=== PATIENT | female | born 1960 | race Caucasian/White ===

== ENCOUNTER → 2018-05-18 10:35 | Outpatient (REF) | payer OTHER, SELFPAY ==
[2018-05-18 13:05] LABS: Bilirubin Negative (Negative); Blood Negative (Negative); Clarity Clear; Glucose Negative (Negative); Ketones Negative (Negative); Leukocyte Esterase Trace (Negative); Nitrite Negative (Negative); Specific Gravity 1.015 (1.005-1.025); Urobilinogen 0.2 EU/dL (Up TO 0.2); pH 5.5 (5-8)
[2018-05-18 13:59] LABS: Epithelial Cells Negative HPF (Negative); RBC Negative (0-2)
[2018-05-18 14:00] LABS: Bacteria Rare HPF (Negative); C & S Indicated? No; Casts Negative LPF (Negative); Crystals Negative HPF (Negative); Mucus Negative (Negative); Other Cells Negative (Negative)
== END ==
LOC: LBN 10:35
DX: R30.0 Dysuria (principal)
CPT/HCPCS: 81003; 81015

== ENCOUNTER 2018-08-18 13:36 | Emergency (ER) | payer OTHER, SELFPAY ==
[2018-08-18 13:43] VITALS: BP 150/95; PULSE 79; RESP 16; TEMP 37; O2SAT 97
--- NOTE | 2018-08-18 14:07 | W.ED.GENAD ---
Discharge Plan Disposition Patient Disposition: HOME Condition: Good Discharge Details Chief Complaint: RashLesion Clinical Impression: Dry skin dermatitis Primary Care Provider: Amie Patterson ED Provider: Mahnaz Hidalgo Home Meds and New Rx's Prescriptions: New clotrimazole-betamethasone 1-0.05 % cream 1 applic TP BID 14 Days Qty: 15 RF: 0 methylprednisolone [Medrol (Cody)] 4 mg tablets,dose pack 4 mg PO .qd Qty: 21 RF: 0 Continue albuterol sulfate [ProAir HFA] 8.5 GM HFA aerosol inhaler 2 puff Inhalation Q4H PRN Qty: 1 RF: 6 fluticasone [Flonase Allergy Relief] 9.9 ML spray,suspension 9.9 ml NS DAILY PRN30 Days Qty: 3 RF: 1 fluticasone-salmeterol [Advair HFA] 8 GM HFA aerosol inhaler 2 puff Inhalation BID Qty: 3 RF: 1 levothyroxine [Synthroid] 125 MCG tablet 1 tab PO DIRECTED Qty: 60 RF: 4 levothyroxine [Synthroid] 112 MCG tablet 1 tab PO DIRECTED Qty: 40 RF: 4 esomeprazole magnesium 20 mg capsule,delayed release(DR/EC) 20 mg PO DAILY 90 Days Qty: 90 RF: 1 [facility] 1 tab PO DAILY RF: 0 Discharge Instructions Instructions: Dermatitis (ED) Additional Instructions: Encourage hydration. Please Eucerin cream to your face or other pjxr-loq-onnwlah thick hydrating cream to help with dry skin. Please use the prescribed cream for your hands, do not apply this to your face. Use this twice daily for the next 2 weeks. If, in the next 5-7 days her symptoms have not began to improve please take Medrol Dosepak as prescribed. Please follow-up in the next 1-2 weeks your primary care for reevaluation please do not improve. Please monitor for signs of infection putting redness, pain, discharge, fevers or chills. If these arise please seek care urgently once again Referrals: Amie Patterson, MARINE SPECIALIST [Primary Care Provider] - Discharge Data Discharge Date/Time-TO BE ENTERED AT DEPARTURE: 08/18/18 15:10 Medical Decision Making Patient a 58-year-old female presenting today with chief complaint of rash. She reports approximately weeks ago she began noting a rash primarily in all dorsum of the left side of the hand. States it was pruritic. Area does appear excoriated. The entirety of the dorsum aspect of the left hand has more focal areas of dryness. Lesions appear consistent with psoriasis although patient does not have history of this. She was questioning if this could be tinea, but exam is not completely consistent with this. No open wounds. Has focal areas of dryness on the dorsum of the right hand as well. Left side of the mouth is also noted to be slightly raised and appear very dry. No pain on palpation of these areas. No signs of infection. She reports she has been using multiple different topical ointments. However, patient reports she is now been using a 1 consistently. Rather, she reports that she has changing this frequently. Has tried vinegar, Mellaluca oil, various lotions and emollients. These findings, patient will be treated with clotrimazole betamethasone cream. Advised that she stop the vinegar and other types of home remedies she has been trying. I advised that she stick with the prescribed cream. Patient will be also prescribed Medrol Dosepak to begin if this is unsuccessful next 1-2 weeks. Advise follow-up with primary care in 1 week if symptoms have not resolved. We discussed new/worsening symptoms. In particular, I advised on the signs symptoms of infection and when to seek care urgently for this once again. All of her questions and concerns were addressed and she is in agreement this plan HPI General Mode of arrival: ambulatory. Date/Time Provider Initiated Documentation: 08/18/18 13:43. Limitations to Documentation: no limitations. Information obtained by: patient. History of Present Illness 58 year old F presents to the emergency department with the chief complaint of rash, described as mild, Quality is described as other (itching to dorsum of hand), and is localized to the face (left side of mouth), left, right and upper extremity (dorsum of hands). Patient reports no radiation. Patient started experiencing this week(s) (2) and it has been constant. No relieving factors improve symptom(s), Patient notes no other symptoms.; denies chest pain, cough, fever/chills, loss of appetite, nausea/vomiting, shortness of breath and weakness. Patient did receive the following treatments prior to arrival, other (multiple topical) Related Data Home Medications Medication Instructions Recorded Confirmed albuterol sulfate [ProAir HFA] 2 puff INHALATION Q4H PRN #1 06/29/17 08/18/18 inhaler fluticasone [Flonase Allergy 9.9 ml NS DAILY PRN 30 Days #3 07/03/17 08/18/18 Relief] fluticasone-salmeterol [Advair HFA] 2 puff INHALATION BID #3 inhaler 10/18/17 08/18/18 levothyroxine [Synthroid] 1 tab PO DIRECTED #40 tab 02/05/18 08/18/18 levothyroxine [Synthroid] 1 tab PO DIRECTED #60 tab 02/05/18 08/18/18 esomeprazole magnesium 20 mg PO DAILY 90 Days #90 cap 08/17/18 08/18/18 [facility] 1 tab PO DAILY 08/18/18 clotrimazole-betamethasone 1 applic TP BID 14 Days #15 gm 08/18/18 methylprednisolone [Medrol (Cody)] 4 mg PO .qd #21 dose pk 08/18/18 Previous Rx's Medication Instructions Recorded albuterol sulfate [ProAir HFA] 2 puff INHALATION Q4H PRN #1 06/29/17 inhaler fluticasone-salmeterol [Advair HFA] 2 puff INHALATION BID #3 inhaler 10/18/17 levothyroxine [Synthroid] 1 tab PO DIRECTED #40 tab 02/05/18 levothyroxine [Synthroid] 1 tab PO DIRECTED #60 tab 02/05/18 esomeprazole magnesium 20 mg PO DAILY 90 Days #90 cap 08/17/18 clotrimazole-betamethasone 1 applic TP BID 14 Days #15 gm 08/18/18 methylprednisolone [Medrol (Cody)] 4 mg PO .qd #21 dose pk 08/18/18 Allergies Allergy/AdvReac Type Severity Reaction Status Date / Time Sulfa (Sulfonamide Allergy Severe RASH Unverified 08/18/18 13:46 Antibiotics) erythromycin base AdvReac Unknown GI UPSET Unverified 08/18/18 13:46 General Stated Complaint: RashLesion DENICE: 4 Review of Systems Constitutional Reports as per HPI Cardiovascular Reports as per HPI Respiratory Reports as per HPI Musculoskeletal Reports as per HPI, Denies numbness and Denies tingling Integumentary/Breasts Reports as per HPI Neurologic Denies numbness, Denies tingling and Denies paresthesias PFSH Family History Mother Essential hypertension Personal history of malignant neoplasm Heart disease Father No problems noted. Sister No problems noted. Sister No problems noted. Sister No problems noted. Brother Personal history of malignant neoplasm Brother No problems noted. Brother Essential hypertension Brother Hyperlipidemia Brother No problems noted. Brother No problems noted. Brother Essential hypertension Grandfather No problems noted. Grandfather No problems noted. Grandmother No problems noted. Grandmother No problems noted. Medical History Asthma GERD (gastroesophageal reflux disease) Hypothyroidism Social History Smoking/Tobacco Use Status: Never Surgical History section (~1981) Colonoscopy - MAC (08/21/17) NASAL POLYP SURGERY Exam Const General: cooperative, healthy appearing, comfortable, no acute distress, well developed and well groomed Nutritional Appearance: average body habitus and well nourished Orientation: alert and awake HENMT Head: normal to inspection Ears: hearing grossly normal bilaterally General nose exam: external nose normal Face and sinus: abnormal facial exam (patient has a mild erythematous, dry rash to left side of mouth, drawn below. No open wounds, no discharge, no pain with palpation. ) Face images: 1. elevated dry rash Mouth: oral mucosae normal and lip normal Throat: posterior oropharynx normal Eyes General: appearance normal, both eyes and all related structures Resp Effort & Inspection: normal respiratory effort, able to speak in complete sentences and no respiratory distress Auscultation: clear to auscultation bilaterally, no rales, no rhonchi and no wheezes Cardio Rate: regular rate Rhythm: regular rhythm Heart Sounds: S1 normal and S2 normal Skin General skin exam: no crusts, no ecchymosis and no erythema Rashes: rashes noted (patient has focal areas of dry skin on the dorsum of bilateral hands, left worse than right. Area appears excoriated. Appears psoriatic) Neuro General: alert, awake and oriented x3 Cognition: normal cognition Speech: speech normal Gait: normal gait Extrem General: abnormal to inspection (rash to both hands as above), full ROM, normal capillary refill and no joint enlargement Psych Appearance: grossly normal and well kempt Mental Status: mental status grossly normal Speech and Movement: speech and movement normal Course Vital Signs Temperature 37 C 08/18/18 13:43 Pulse 79 08/18/18 13:43 Respiratory Rate 16 08/18/18 13:43 Blood Pressure 150/95 H 08/18/18 13:43 Pulse Oximetry 97 08/18/18 13:43 Temperature 37 C 08/18/18 13:43 Temperature Source Skin 08/18/18 13:43 Pulse 79 08/18/18 13:43 Respiratory Rate 16 08/18/18 13:43 Respiratory Effort Non-Labored 08/18/18 13:43 Blood Pressure 150/95 H 08/18/18 13:43 Blood Pressure Position Sitting 08/18/18 13:43 Pulse Oximetry 97 08/18/18 13:43 Oxygen Delivery Method Room Air 08/18/18 13:43 Oxygen Flow Rate 0 08/18/18 13:43 Pain Level 0 08/18/18 13:43
[2018-08-18 15:08] VITALS: BP 136/75; PULSE 67; RESP 16; O2SAT 97
--- NOTE | 2018-08-19 19:15 | ED.GENADUL_ITS ---
Discharge Plan Disposition Patient Disposition: HOME Condition: Good Discharge Details Chief Complaint: RashLesion Clinical Impression: Dry skin dermatitis Primary Care Provider: Amie Patterson ED Provider: Mahnaz Hidalgo Home Meds and New Rx's Prescriptions: New clotrimazole-betamethasone 1-0.05 % cream 1 applic TP BID 14 Days Qty: 15 RF: 0 methylprednisolone [Medrol (Cody)] 4 mg tablets,dose pack 4 mg PO .qd Qty: 21 RF: 0 Continue albuterol sulfate [ProAir HFA] 8.5 GM HFA aerosol inhaler 2 puff Inhalation Q4H PRN Qty: 1 RF: 6 fluticasone [Flonase Allergy Relief] 9.9 ML spray,suspension 9.9 ml NS DAILY PRN30 Days Qty: 3 RF: 1 fluticasone-salmeterol [Advair HFA] 8 GM HFA aerosol inhaler 2 puff Inhalation BID Qty: 3 RF: 1 levothyroxine [Synthroid] 125 MCG tablet 1 tab PO DIRECTED Qty: 60 RF: 4 levothyroxine [Synthroid] 112 MCG tablet 1 tab PO DIRECTED Qty: 40 RF: 4 esomeprazole magnesium 20 mg capsule,delayed release(DR/EC) 20 mg PO DAILY 90 Days Qty: 90 RF: 1 [facility] 1 tab PO DAILY RF: 0 Discharge Instructions Instructions: Dermatitis (ED) Additional Instructions: Encourage hydration. Please Eucerin cream to your face or other over-the- counter thick hydrating cream to help with dry skin. Please use the prescribed cream for your hands, do not apply this to your face. Use this twice daily for the next 2 weeks. If, in the next 5-7 days her symptoms have not began to improve please take Medrol Dosepak as prescribed. Please follow-up in the next 1-2 weeks your primary care for reevaluation please do not improve. Please monitor for signs of infection putting redness, pain, discharge, fevers or chills. If these arise please seek care urgently once again Referrals: Amie Patterson, TRIMMING OPERATOR [Primary Care Provider] - Discharge Data Discharge Date/Time-TO BE ENTERED AT DEPARTURE: 08/18/18 15:10 Medical Decision Making Patient a 58-year-old female presenting today with chief complaint of rash. She reports approximately weeks ago she began noting a rash primarily in all dorsum of the left side of the hand. States it was pruritic. Area does appear excoriated. The entirety of the dorsum aspect of the left hand has more focal areas of dryness. Lesions appear consistent with psoriasis although patient does not have history of this. She was questioning if this could be tinea, but exam is not completely consistent with this. No open wounds. Has focal areas of dryness on the dorsum of the right hand as well. Left side of the mouth is also noted to be slightly raised and appear very dry. No pain on palpation of these areas. No signs of infection. She reports she has been using multiple different topical ointments. However, patient reports she is now been using a 1 consistently. Rather, she reports that she has changing this frequently. Has tried vinegar, Mellaluca oil, various lotions and emollients. These findings, patient will be treated with clotrimazole betamethasone cream. Advised that she stop the vinegar and other types of home remedies she has been trying. I advised that she stick with the prescribed cream. Patient will be also prescribed Medrol Dosepak to begin if this is unsuccessful next 1-2 weeks. Advise follow-up with primary care in 1 week if symptoms have not resolved. We discussed new/worsening symptoms. In particular, I advised on the signs symptoms of infection and when to seek care urgently for this once again. All of her questions and concerns were addressed and she is in agreement this plan HPI General Mode of arrival: ambulatory . Date/Time Provider Initiated Documentation: 08/18/18 13:43 . Limitations to Documentation: no limitations . Information obtained by: patient . History of Present Illness 58 year old F presents to the emergency department with the chief complaint of rash, described as mild, Quality is described as other (itching to dorsum of hand), and is localized to the face (left side of mouth), left, right and upper extremity (dorsum of hands). Patient reports no radiation. Patient started experiencing this week(s) (2) and it has been constant. No relieving factors improve symptom(s), Patient notes no other symptoms.; denies chest pain, cough, fever/chills, loss of appetite, nausea/vomiting, shortness of breath and weakness. Patient did receive the following treatments prior to arrival, other (multiple topical) Related Data Home Medications Medication Instructions Recorded Confirmed albuterol sulfate [ProAir HFA] 2 puff INHALATION Q4H PRN #1 06/29/17 08/18/18 inhaler fluticasone [Flonase Allergy 9.9 ml NS DAILY PRN 30 Days #3 07/03/17 08/18/18 Relief] fluticasone-salmeterol [Advair HFA] 2 puff INHALATION BID #3 inhaler 10/18/17 levothyroxine [Synthroid] 1 tab PO DIRECTED #40 tab 02/05/18 08/18/18 levothyroxine [Synthroid] 1 tab PO DIRECTED #60 tab 02/05/18 08/18/18 esomeprazole magnesium 20 mg PO DAILY 90 Days #90 cap 08/17/18 08/18/18 [facility] 1 tab PO DAILY 08/18/18 clotrimazole-betamethasone 1 applic TP BID 14 Days #15 gm 08/18/18 methylprednisolone [Medrol (Cody)] 4 mg PO .qd #21 dose pk 08/18/18 Previous Rx's Medication Instructions Recorded albuterol sulfate [ProAir HFA] 2 puff INHALATION Q4H PRN #1 06/29/17 inhaler fluticasone-salmeterol [Advair HFA] 2 puff INHALATION BID #3 inhaler 10/18/17 levothyroxine [Synthroid] 1 tab PO DIRECTED #40 tab 02/05/18 levothyroxine [Synthroid] 1 tab PO DIRECTED #60 tab 02/05/18 esomeprazole magnesium 20 mg PO DAILY 90 Days #90 cap 08/17/18 clotrimazole-betamethasone 1 applic TP BID 14 Days #15 gm 08/18/18 methylprednisolone [Medrol (Cody)] 4 mg PO .qd #21 dose pk 08/18/18 Allergies Allergy/AdvReac Type Severity Reaction Status Date / Time Sulfa (Sulfonamide Allergy Severe RASH Unverified 08/18/18 13:46 Antibiotics) erythromycin base AdvReac Unknown GI UPSET Unverified 08/18/18 13:46 General Stated Complaint: RashLesion DENICE: 4 Review of Systems Constitutional Reports as per HPI Cardiovascular Reports as per HPI Respiratory Reports as per HPI Musculoskeletal Reports as per HPI, Denies numbness and Denies tingling Integumentary/Breasts Reports as per HPI Neurologic Denies numbness, Denies tingling and Denies paresthesias PFSH Family History Mother Essential hypertension Personal history of malignant neoplasm Heart disease Father No problems noted. Sister No problems noted. Sister No problems noted. Sister No problems noted. Brother Personal history of malignant neoplasm Brother No problems noted. Brother Essential hypertension Brother Hyperlipidemia Brother No problems noted. Brother No problems noted. Brother Essential hypertension Grandfather No problems noted. Grandfather No problems noted. Grandmother No problems noted. Grandmother No problems noted. Medical History Asthma GERD (gastroesophageal reflux disease) Hypothyroidism Social History Smoking/Tobacco Use Status: Never Surgical History section (~1981) Colonoscopy - MAC (08/21/17) NASAL POLYP SURGERY Exam Const General: cooperative, healthy appearing, comfortable, no acute distress, well developed and well groomed Nutritional Appearance: average body habitus and well nourished Orientation: alert and awake HENMT Head: normal to inspection Ears: hearing grossly normal bilaterally General nose exam: external nose normal Face and sinus: abnormal facial exam (patient has a mild erythematous, dry rash to left side of mouth, drawn below. No open wounds, no discharge, no pain with palpation. ) Face images: 2 1. elevated dry rash Mouth: oral mucosae normal and lip normal Throat: posterior oropharynx normal Eyes General: appearance normal, both eyes and all related structures Resp Effort & Inspection: normal respiratory effort, able to speak in complete sentences and no respiratory distress Auscultation: clear to auscultation bilaterally, no rales, no rhonchi and no wheezes Cardio Rate: regular rate Rhythm: regular rhythm Heart Sounds: S1 normal and S2 normal Skin General skin exam: no crusts, no ecchymosis and no erythema Rashes: rashes noted (patient has focal areas of dry skin on the dorsum of bilateral hands, left worse than right. Area appears excoriated. Appears psoriatic) Neuro General: alert, awake and oriented x3 Cognition: normal cognition Speech: speech normal Gait: normal gait Extrem General: abnormal to inspection (rash to both hands as above), full ROM, normal capillary refill and no joint enlargement Psych Appearance: grossly normal and well kempt Mental Status: mental status grossly normal Speech and Movement: speech and movement normal Course Vital Signs Temperature 37 C 08/18/18 13:43 Pulse 79 08/18/18 13:43 Respiratory Rate 16 08/18/18 13:43 Blood Pressure 150/95 H 08/18/18 13:43 Pulse Oximetry 97 08/18/18 13:43 Temperature 37 C 08/18/18 13:43 Temperature Source Skin 08/18/18 13:43 Pulse 79 08/18/18 13:43 Respiratory Rate 16 08/18/18 13:43 Respiratory Effort Non-Labored 08/18/18 13:43 Blood Pressure 150/95 H 08/18/18 13:43 Blood Pressure Position Sitting 08/18/18 13:43 Pulse Oximetry 97 08/18/18 13:43 Oxygen Delivery Method Room Air 08/18/18 13:43 Oxygen Flow Rate 0 08/18/18 13:43 Pain Level 0 08/18/18 13:43
== END 2018-08-18 15:10 | disposition home or self-care (01) ==
PROVIDERS: Emergency Provider Physician Assistant
DX: L85.3 Xerosis cutis (principal)
CPT/HCPCS: 99283

== ENCOUNTER 2018-11-22 02:30 | Outpatient (CLI) | payer OTHER, SELFPAY ==
--- NOTE | 2018-11-22 07:23 | DI.MAMMO_ITS ---
SYMPTOMS/DIAGNOSIS: SCREENING, Z12.31 MAMMOGRAMS: Mammograms were interpreted according to the usual protocol including computer analysis with CAD system, tomosynthesis and C view imaging. The breasts are of moderate density with fairly symmetrical distribution of fibroglandular tissue. No dominant mass or clumped microcalcification is identified in either breast. Current examination is compared with previous examinations including November 2017 and there has been no gross interval change in appearance in comparison with the previous studies. CONCLUSION: No specific evidence of malignancy at this time. Routine screening examinations are suggested at yearly intervals in this age group according to the ACS/ACR guidelines. Category 1, breast density category B. MQSA ASSESSMENT OF FINDINGS: Negative. Category 1. Patient will receive a letter notifying them of these results. BI-RADS category B. There are scattered areas of fibroglandular density.
[2018-11-22 09:06] LABS: ALT 57 U/L (12-78); AST 24 U/L (15-37); Alkaline Phosphatase 66 U/L (46-116); Anion Gap 10.3 mmol/L (3-11); BUN 20 mg/dL (7-18); Bilirubin, Total 0.6 mg/dL (0.2-1.0); CO2 29.7 mmol/L (21.0-32.0); CREATININE 0.85 mg/dL (0.55-1.02); Calcium 9.6 mg/dL (8.5-10.1); Chloride 105 mmol/L (98-107); Cholesterol 224 mg/dL (50-200); Glucose 107 mg/dL (70-100); HDL Cholesterol 64 mg/dL (40-60); LDL CHOLESTEROL 134 mg/dL (<100); Potassium 4.2 mmol/L (3.5-5.1); Sodium 145 mmol/L (136-145); TSH (W/Ref FT4) 5.76 uIU/mL (0.358-3.74); Total Protein 7.6 g/dL (6.4-8.2); Triglyceride 107 mg/dL (30-150)
[2018-11-22 09:25] LABS: FREE T4 1.03 ng/dL (0.76-1.46)
== END 2018-11-22 02:50 ==
DX: Z12.31 Encounter for screening mammogram for malignant neoplasm of breast (principal); E03.9 Hypothyroidism, unspecified; Z00.00 Encounter for general adult medical examination without abnormal findings; I10 Essential (primary) hypertension; J45.909 Unspecified asthma, uncomplicated; G47.00 Insomnia, unspecified; R63.8 Other symptoms and signs concerning food and fluid intake
CPT/HCPCS: 77063; 77067; 80053; 80061; 83721; 84439; 84443

== ENCOUNTER 2019-07-30 02:08 | Outpatient (CLI) | payer OTHER, SELFPAY ==
[2019-07-30 09:05] LABS: ALT 33 U/L (14-59); AST 17 U/L (15-37); Albumin 3.9 g/dL (3.4-5.0); Alkaline Phosphatase 63 U/L (46-116); Anion Gap 9.3 mmol/L (3-11); BUN 20 mg/dL (7-18); Bilirubin, Total 0.5 mg/dL (0.2-1.0); CO2 29.7 mmol/L (21.0-32.0); CREATININE 0.82 mg/dL (0.55-1.02); Calcium 9.2 mg/dL (8.5-10.1); Calculated LDL 137 mg/dL; Chloride 104 mmol/L (98-107); Cholesterol 222 mg/dL (50-200); Glucose 101 mg/dL (70-100); HDL Cholesterol 71 mg/dL (40-60); Potassium 4.4 mmol/L (3.5-5.1); Sodium 143 mmol/L (136-145); TSH (W/Ref FT4) 10.23 uIU/mL (0.36-3.74); Total Protein 7.2 g/dL (6.4-8.2); Triglyceride 74 mg/dL (30-150)
[2019-07-30 09:42] LABS: FREE T4 0.89 ng/dL (0.76-1.46)
== END 2019-07-30 02:28 ==
DX: E03.9 Hypothyroidism, unspecified (principal); J45.909 Unspecified asthma, uncomplicated; R63.8 Other symptoms and signs concerning food and fluid intake; Z00.00 Encounter for general adult medical examination without abnormal findings; I10 Essential (primary) hypertension; G47.00 Insomnia, unspecified
CPT/HCPCS: 36415; 80053; 80061; 84439; 84443

== ENCOUNTER 2019-10-21 15:30 | Outpatient (CLI) | payer OTHER, SELFPAY ==
[2019-10-21 18:58] LABS: ALT 42 U/L (14-59); AST 17 U/L (15-37); Albumin 4.3 g/dL (3.4-5.0); Alkaline Phosphatase 69 U/L (46-116); BUN 20 mg/dL (7-18); Bilirubin, Total 0.4 mg/dL (0.2-1.0); CREATININE 0.85 mg/dL (0.55-1.02); Calcium 9.2 mg/dL (8.5-10.1); Calculated LDL 157 mg/dL; Chloride 105 mmol/L (98-107); Cholesterol 253 mg/dL (<200); Glucose 96 mg/dL (74-106); HDL Cholesterol 74 mg/dL (40-60); Sodium 145 mmol/L (136-145); TSH (W/Ref FT4) 10.13 uIU/mL (0.36-3.74); Total Protein 7.7 g/dL (6.4-8.2); Triglyceride 114 mg/dL (<150)
[2019-10-22 14:58] LABS: FREE T4 0.96 ng/dL (0.76-1.46)
== END 2019-10-21 15:50 ==
DX: Z00.00 Encounter for general adult medical examination without abnormal findings (principal); E03.9 Hypothyroidism, unspecified; E78.5 Hyperlipidemia, unspecified; G47.00 Insomnia, unspecified; K21.9 Gastro-esophageal reflux disease without esophagitis; J45.909 Unspecified asthma, uncomplicated
CPT/HCPCS: 36415; 80053; 80061; 84439; 84443

== ENCOUNTER 2019-10-21 15:35 | Outpatient (REF) | payer OTHER, SELFPAY ==
--- NOTE | 2019-10-21 13:30 | PAPFT_PTH ---
PATIENT: Simona Pineda LOC: [facility]#:[id number] AGE/SX: 59/F ROOM: RE10/21/[address]: Amie Patterson APRN : 1960 BED: DIS: 10/21/2019 SPEC #: [id number] RECD: 10/21/19 18:45 STATUS: EDILBERTO RELsia #: [id number] TAVIA: 10/21/19 13:[address]: Amie Patterson [facility] Cytology RECD BY: Deborah Maloney Tissues: 1 - CX/ENDOCX FOR PAP SMEARS Procedures: PAP THIN PREP/UVM Screening HPV DNA PROBE Comments: [id number]
== END 2019-10-21 15:55 ==
LOC: NCHCN 15:35
DX: Z12.4 Encounter for screening for malignant neoplasm of cervix (principal)
CPT/HCPCS: 88142; 87624

== ENCOUNTER 2019-11-25 01:23 | Outpatient (CLI) | payer OTHER, SELFPAY ==
--- NOTE | 2019-11-25 14:57 | DI.MAMMO_ITS ---
EXAM: MAMMO SCREENING CLINICAL HISTORY: screening Z12.39. TECHNIQUE: Full field digital CC and MLO mammographic images were obtained with 3D tomosynthesis and utilizing computer aided detection (CAD). COMPARISON: . 2009 through 2013 FINDINGS: Breast Density - Category B - Scattered areas of fibroglandular density Masses/Architectural Distortion: None seen. Microcalcifications: No suspicious pleomorphic-type calcifications are seen. Skin Thickening/Nipple Retraction: None. Axilla: Unremarkable. IMPRESSION: 1. BI-RADS category 1, negative. No significant interval change with no specific features of maligna ncy noted. 2. Unless there is more urgent need, screening mammography is recommended, as per [place] [employer] guidelines. A negative radiographic report should not delay biopsy if a dominant or clinically suspicious mass is present. Up to ten percent of cancers are not identified on mammography. A negative report may reinforce clinical impression. Adenosis and dense breasts may obscure an underlying neoplasm. False positive reports average 6 to 10%. Patient will receive a letter notifying them of these results.
== END 2019-11-25 01:43 ==
DX: Z12.31 Encounter for screening mammogram for malignant neoplasm of breast (principal)
CPT/HCPCS: 77063; 77067

== ENCOUNTER 2019-12-19 14:08 | Outpatient (CLI) | payer OTHER, SELFPAY ==
[2019-12-19 15:32] LABS: TSH (W/Ref FT4) 1.83 uIU/mL (0.36-3.74)
== END 2019-12-19 14:28 ==
DX: E03.9 Hypothyroidism, unspecified (principal); G47.00 Insomnia, unspecified
CPT/HCPCS: 36415; 84443

== ENCOUNTER 2020-04-21 02:18 | Outpatient (CLI) | payer OTHER, SELFPAY ==
[2020-04-21 10:33] LABS: TSH (W/Ref FT4) 1.43 uIU/mL (0.36-3.74)
== END 2020-04-21 02:38 ==
DX: E03.9 Hypothyroidism, unspecified (principal); G47.00 Insomnia, unspecified
CPT/HCPCS: 36415; 84443

== ENCOUNTER 2020-04-28 01:40 | Outpatient (CLI) | payer OTHER, SELFPAY ==
--- NOTE | 2020-04-28 06:45 | DI.RAD_ITS ---
EXAM: XR FOOT LT COMPLETE CLINICAL HISTORY: left foot pain and swelling without injury,m79.672 TECHNIQUE: COMPARISON: No exams were available for comparison FINDINGS: Three views were obtained. There is a moderate hallux valgus deformity. There is [id number] d egenerative change of the 1st MTP joint, there is mild to moderate degenerative change of the IP join ts of the foot and also of the joints of the midfoot, particularly at the cuneiform 1st through 3rd m etatarsal joints. No other significant bony or soft tissue abnormality seen. 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
== END 2020-04-28 02:00 ==
DX: M79.672 Pain in left foot (principal); M19.072 Primary osteoarthritis, left ankle and foot; M20.12 Hallux valgus (acquired), left foot
CPT/HCPCS: 73630

== ENCOUNTER 2020-10-22 02:22 | Outpatient (CLI) | payer OTHER, SELFPAY ==
[2020-10-22 13:19] LABS: ALT 45 U/L (14-59); AST 20 U/L (15-37); Albumin 4.1 g/dL (3.4-5.0); Alkaline Phosphatase 59 U/L (46-116); Anion Gap 6.1 mmol/L (3-11); BUN 18 mg/dL (7-18); Bilirubin, Total 0.5 mg/dL (0.2-1.0); CO2 29.9 mmol/L (21.0-32.0); CREATININE 0.84 mg/dL (0.55-1.02); Calcium 8.9 mg/dL (8.5-10.1); Calculated LDL 157 mg/dL (<100); Chloride 104 mmol/L (98-107); Cholesterol 248 mg/dL (<200); Glucose 92 mg/dL (74-106); HDL Cholesterol 79 mg/dL (40-60); Potassium 4.3 mmol/L (3.5-5.1); Sodium 140 mmol/L (136-145); TSH (W/Ref FT4) 14.75 uIU/mL (0.36-3.74); Total Protein 7.4 g/dL (6.4-8.2); Triglyceride 60 mg/dL (<150)
[2020-10-22 13:47] LABS: FREE T4 0.91 ng/dL (0.76-1.46)
== END 2020-10-22 02:42 ==
DX: Z00.00 Encounter for general adult medical examination without abnormal findings (principal); E78.5 Hyperlipidemia, unspecified; E03.9 Hypothyroidism, unspecified; G47.00 Insomnia, unspecified; K21.9 Gastro-esophageal reflux disease without esophagitis; J45.909 Unspecified asthma, uncomplicated
CPT/HCPCS: 36415; 80053; 80061; 84439; 84443

== ENCOUNTER 2020-12-03 10:02 | Outpatient (REF) | payer OTHER, SELFPAY ==
--- NOTE | 2020-12-03 08:00 | PAPFT_PTH ---
PATIENT: Simona Pineda LOC: [facility] U#:[id number] AGE/SX: 60/F ROOM: RE12/03/[address]: Amie Patterson APRN : 1960 BED: DIS: 12/03/2020 SPEC #: [id number] RECD: 12/03/20 13:15 STATUS: EDILBERTO COVARRUBIAS #: [id number] TAVIA: 12/03/20 08:[address]: Amie Patterson [facility] Cytology RECD BY: Deborah Maloney Tissues: 1 - CX/ENDOCX FOR PAP SMEARS Procedures: PAP THIN PREP/UVM Screening HPV DNA PROBE Comments: [id number]
== END 2020-12-03 10:03 | disposition home or self-care (01) ==
LOC: LBN 10:02
DX: Z12.4 Encounter for screening for malignant neoplasm of cervix (principal); Z11.51 Encounter for screening for human papillomavirus (HPV)
CPT/HCPCS: 88142; 87624

== ENCOUNTER 2021-02-15 02:26 | Outpatient (CLI) | payer OTHER, SELFPAY ==
[2021-02-15 18:05] LABS: TSH (W/Ref FT4) 0.05 uIU/mL (0.36-3.74)
[2021-02-15 18:21] LABS: FREE T4 1.35 ng/dL (0.76-1.46)
== END 2021-02-15 02:27 | disposition home or self-care (01) ==
LOC: LBO 02:26
DX: E03.9 Hypothyroidism, unspecified (principal)
CPT/HCPCS: 36415; 84439; 84443

== ENCOUNTER 2021-09-06 01:14 | Outpatient (CLI) | payer OTHER, SELFPAY ==
--- NOTE | 2021-09-06 15:37 | DI.MAMMO_ITS ---
Exam(s) MAMMO SCREENING EXAM: MAMMO SCREENING CLINICAL HISTORY: screening TECHNIQUE: Mammograms were interpreted according to the usual protocol including computer analysis w [employer] CAD system, tomosynthesis and C-view imaging. COMPARISON: 2010 through 2019 FINDINGS: The breasts are composed of scattered fibroglandular densities, Breast Density category B. No suspicious masses or suspicious microcalcifications are seen. No skin thickening or abnormal axillary lymph nodes are seen. There has been no significant change from prior exams. IMPRESSION: BI-RADS Category 1, Negative mammogram Yearly screening mammography is recommended. Breast Density - Category B, scattered fibroglandular densities. A negative radiographic report should not delay biopsy if a dominant or clinically suspicious mass is present. Up to ten percent of cancers are not identified on mammography. A negative report may reinforce clinical impression. Adenosis and dense breasts may obscure an underlying neoplasm. False positive reports average 6 to 10%. Patient will receive a letter notifying them of these results.
== END 2021-09-06 01:34 ==
DX: Z12.31 Encounter for screening mammogram for malignant neoplasm of breast (principal)
CPT/HCPCS: 77063; 77067

== ENCOUNTER 2021-12-23 02:44 | Outpatient (CLI) | payer OTHER, SELFPAY ==
[2021-12-23 11:51] LABS: ALT 60 U/L (14-59); AST 23 U/L (15-37); Alkaline Phosphatase 86 U/L (46-116); BUN 17 mg/dL (7-18); Bilirubin, Total 0.4 mg/dL (0.2-1.0); CREATININE 0.7 mg/dL (0.55-1.02); Calcium 9.2 mg/dL (8.5-10.1); Calculated LDL 85 mg/dL (<100); Chloride 104 mmol/L (98-107); Cholesterol 178 mg/dL (<200); Glucose 103 mg/dL (74-106); HDL Cholesterol 61 mg/dL (40-60); Sodium 140 mmol/L (136-145); TSH (W/Ref FT4) 0.02 uIU/mL (0.36-3.74); Total Protein 7.3 g/dL (6.4-8.2); Triglyceride 162 mg/dL (<150)
[2021-12-23 12:13] LABS: FREE T4 1.26 ng/dL (0.76-1.46)
== END 2021-12-23 02:45 | disposition home or self-care (01) ==
LOC: LBO 02:44
DX: E03.9 Hypothyroidism, unspecified (principal); Z00.00 Encounter for general adult medical examination without abnormal findings
CPT/HCPCS: 36415; 80053; 80061; 84439; 84443

== ENCOUNTER 2022-06-23 03:02 | Outpatient (CLI) | payer OTHER, SELFPAY ==
[2022-06-23 13:02] LABS: TSH (W/Ref FT4) 0.02 uIU/mL (0.36-3.74)
[2022-06-23 13:21] LABS: FREE T4 1.44 ng/dL (0.76-1.46)
== END 2022-06-23 03:03 | disposition home or self-care (01) ==
LOC: LOS 03:02
DX: E03.9 Hypothyroidism, unspecified (principal); Z00.00 Encounter for general adult medical examination without abnormal findings; E78.5 Hyperlipidemia, unspecified
CPT/HCPCS: 36415; 80053; 80061; 84439; 84443

== ENCOUNTER 2022-11-02 01:35 | Outpatient (CLI) | payer OTHER, SELFPAY | END 2022-11-02 01:55 | PROVIDERS: PCP Nurse Practitioner Family | DX: Z12.31 Encounter for screening mammogram for malignant neoplasm of breast (principal) | CPT/HCPCS: 77063; 77067 ==

== ENCOUNTER 2022-11-02 03:07 | Outpatient (CLI) | payer OTHER, SELFPAY ==
[2022-11-02 17:19] LABS: TSH (W/Ref FT4) 0.15 uIU/mL (0.36-3.74)
[2022-11-02 17:55] LABS: FREE T4 1.35 ng/dL (0.76-1.46)
== END 2022-11-02 03:08 | disposition home or self-care (01) ==
LOC: LBO 03:07
PROVIDERS: Family Medicine; PCP Nurse Practitioner Family; Visit Provider Nurse Practitioner Family
DX: E03.9 Hypothyroidism, unspecified (principal)
CPT/HCPCS: 36415; 84439; 84443

== ENCOUNTER 2023-02-22 02:24 | Outpatient (CLI) | payer OTHER, SELFPAY ==
[2023-02-22 13:14] LABS: ALT 58 U/L (14-59); AST 28 U/L (15-37); Albumin 3.9 g/dL (3.4-5.0); Alkaline Phosphatase 74 U/L (46-116); Anion Gap 10.7 mmol/L (3-11); BUN 21 mg/dL (7-18); Bilirubin, Total 0.5 mg/dL (0.2-1.0); CO2 26.3 mmol/L (21.0-32.0); CREATININE 0.9 mg/dL (0.55-1.02); Calcium 9.3 mg/dL (8.5-10.1); Calculated LDL 104 mg/dL (<100); Chloride 106 mmol/L (98-107); Cholesterol 186 mg/dL (<200); Estimated GFR 71.83 (mL/min/1.73m2); Glucose 106 mg/dL (74-106); HDL Cholesterol 70 mg/dL (40-60); Potassium 3.9 mmol/L (3.5-5.1); Sodium 143 mmol/L (136-145); TSH (W/Ref FT4) 0.23 uIU/mL (0.36-3.74); Total Protein 7.7 g/dL (6.4-8.2); Triglyceride 64 mg/dL (<150)
[2023-02-22 13:34] LABS: FREE T4 1.31 ng/dL (0.76-1.46)
== END 2023-02-22 02:25 | disposition home or self-care (01) ==
LOC: LOS 02:24
PROVIDERS: PCP Nurse Practitioner Family; Visit Provider Nurse Practitioner Family
DX: Z00.00 Encounter for general adult medical examination without abnormal findings (principal); E03.9 Hypothyroidism, unspecified; E78.5 Hyperlipidemia, unspecified
CPT/HCPCS: 36415; 80053; 80061; 84439; 84443

== ENCOUNTER 2024-03-01 01:43 | Outpatient (CLI) | payer OTHER, SELFPAY ==
[2024-03-01 12:43] LABS: ALT 94 U/L (14-59); AST 51 U/L (15-37); Albumin 3.8 g/dL (3.4-5.0); Alkaline Phosphatase 75 U/L (46-116); Anion Gap 4.6 mmol/L (3-11); BUN 19 mg/dL (7-18); Bilirubin, Total 0.7 mg/dL (0.2-1.0); CO2 27.4 mmol/L (21.0-32.0); CREATININE 0.8 mg/dL (0.55-1.02); Calcium 9.2 mg/dL (8.5-10.1); Calculated LDL 79 mg/dL (<100); Chloride 107 mmol/L (98-107); Cholesterol 162 mg/dL (<200); Estimated GFR 82.23 (mL/min/1.73m2); Glucose 104 mg/dL (74-106); HDL Cholesterol 74 mg/dL (40-60); Potassium 4.3 mmol/L (3.5-5.1); Sodium 139 mmol/L (136-145); TSH (W/Ref FT4) 0.42 uIU/mL (0.36-3.74); Total Protein 7.6 g/dL (6.4-8.2); Triglyceride 47 mg/dL (<150)
[2024-03-01 12:55] LABS: Uric Acid 5.3 mg/dL (2.6-6.0)
== END 2024-03-01 01:44 | disposition home or self-care (01) ==
LOC: LOS 01:44
PROVIDERS: PCP Nurse Practitioner Family; Visit Provider Nurse Practitioner Family
DX: E78.5 Hyperlipidemia, unspecified (principal); E03.9 Hypothyroidism, unspecified; Z00.00 Encounter for general adult medical examination without abnormal findings
CPT/HCPCS: 36415; 80053; 80061; 84443; 84550

== ENCOUNTER → 2024-03-25 04:20 | Outpatient (CLI) | payer OTHER, SELFPAY ==
--- NOTE | 2024-03-25 08:30 | DI.MAMMO_ITS ---
Exam(s) MAMMO SCREENING EXAM: MAMMO SCREENING CLINICAL HISTORY: screening,z12.39 TECHNIQUE: Bilateral full field digital CC and MLO mammographic images were obtained with 3D tomosyn thesis and utilizing computer aided detection (CAD). COMPARISON: Available for comparison. FINDINGS: Masses/Architectural Distortion: There is an area of asymmetric breast tissue in the upper central ri ght breast on the MLO view 7 cm from the nipple which is more prominent compared to the prior examina tions. Microcalcifications: No suspicious pleomorphic-type are seen. Skin Thickening/Nipple Retraction: None. IMPRESSION: 1. Area of asymmetric breast tissue in the upper central right breast. 2. This area should be further evaluated with a spot compression view. Limited right breast ultrasou nd may be indicated at that time. BI-RADS Category 0 - Assessment Incomplete: Need additional imaging evaluation Breast Density - Category B - Scattered areas of fibroglandular density Breast density category C or D implies that the patient has dense breast tissue. Dense breast tissue is very common and is not abnormal but dense breast tissue can make it harder to find cancer on a ma mmogram. Also, dense breast tissue may increase their breast cancer risk. This information about the result of the mammogram report was provided to the patient to raise their awareness. Use this report when you speak with the patient about their risks for breast cancer, which includes their family hist ory. At that time, you may recommend for more screening tests (Ultrasound or MRI) as they might be us eful based on their risk. A negative radiographic report should not delay biopsy if a dominant or clinically suspicious mass is present. Up to ten percent of cancers are not identified on mammography. A negative report may reinforce clinical impression. Adenosis and dense breasts may obscure an underlying neoplasm. False positive reports average 6 to 10%. Patient will receive a letter notifying them of these results.
== END ==
PROVIDERS: PCP Nurse Practitioner Family; Visit Provider Nurse Practitioner Family
DX: Z12.31 Encounter for screening mammogram for malignant neoplasm of breast (principal); R92.8 Other abnormal and inconclusive findings on diagnostic imaging of breast
CPT/HCPCS: 77063; 77067

== ENCOUNTER → 2024-03-28 00:18 | Outpatient (CLI) | payer OTHER, SELFPAY ==
--- NOTE | 2024-03-28 | DI.MAMMO_ITS ---
Exam(s) MG MAMMO SCREEN CALL BACK UNI EXAM: MAMMO SCREEN CALL BACK UNI CLINICAL HISTORY: F/U ABNL MAMMO, ASYMMETRIC BREAST TISSUE UPPER CENTRAL RT BREAST. TECHNIQUE: Craniocaudal and mediolateral oblique Full Field Digital Mammography views of the right b reast with Computer Aided Diagnosis. COMPARISON: Comparison is made with prior examinations. FINDINGS: Mammography/Tomosynthesis: Masses/Architectural Distortion: The additional views fail to show persistent discrete mass. No mass or area of architectural distortion is seen. Microcalcifictions: No suspicious pleomorphic-type are seen. Skin Thickening/Nipple Retraction: None. IMPRESSION: 1. No evidence of malignancy is noted. 2. Unless there is more urgent need, follow-up screening mammography is recommended, as per [employer] guidelines. 3. The findings were discussed with the patient on the date of the examination. BI-RADS Category 1 - Negative Breast Density - Category B - Scattered areas of fibroglandular density Breast density Category C or D implies that the patient has dense breast tissue. Dense breast tissue can make it harder to find cancer on a mammogram. Dense breast tissue is also associated with an incr eased risk of breast cancer. This information about the result of the mammogram report was provided to the patient to raise their awareness. Use this report when you speak with the patient about their risks for breast cancer, which includes their family history. At that time, you may recommend additional screening tests (Ultrasoun d or MRI) as these tests may add significant information. A negative radiographic report should not delay biopsy if a dominant or clinically suspicious mass is present. Up to ten percent of cancers are not identified on mammography. A negative report may reinforce clinical impression. Adenosis and dense breasts may obscure an underlying neoplasm. False positive reports average 6 to 10%. Patient will receive a letter notifying them of these results.
== END ==
PROVIDERS: PCP Nurse Practitioner Family; Visit Provider Nurse Practitioner Family
DX: R92.8 Other abnormal and inconclusive findings on diagnostic imaging of breast (principal)
CPT/HCPCS: 77063; 77067

== ENCOUNTER 2024-07-15 10:19 | Day surgery (SDC) | payer OTHER, SELFPAY ==
--- NOTE | 2024-07-14 11:45 | W.PM.DSUDISC ---
Date of service: 07/15/24 Time of Service: 13:10 Discharge Plan Disposition Patient Disposition: Home Condition: Good Discharge Details Reason For Visit: screening colonoscopy Attending Provider: Jong Roberto Primary Care Provider: John Gonzalez Home Meds and New Rx's Prescriptions: Continued esomeprazole magnesium 20 mg capsule,delayed release(DR/EC) 20 mg PO DAILY 90 Days Qty: 90 3RF levothyroxine [Synthroid] 100 mcg tablet See Rx Instructions .ROUTE .COMPLEX Qty: 90 3RF Dose Instruction: TAKE 1 TABLET DAILY EVERY MORNING Rx Instructions: TAKE 1 TABLET DAILY EVERY MORNING atorvastatin 10 mg tablet 10 mg PO QPM Qty: 90 3RF fluticasone propion-salmeterol [Advair HFA] 230-21 mcg/actuation HFA aerosol inhaler 2 puff Inhalation BID Qty: 12 0RF dupilumab 300 mg/2 mL syringe 300 mg subcut Q2W Qty: 4 2RF Discontinued polyethylene glycol 3350 17 gram/dose powder 238 g PO ONCE Qty: 238 0RF Rx Instructions: take per colonoscopy instructions bisacodyl [Dulcolax (bisacodyl)] 5 mg tablet,delayed release (DR/EC) 5 mg PO ONCE Qty: 4 0RF Rx Instructions: take per colonoscopy instructions Discharge Instructions Instructions: Colon polyps, Diverticulosis Additional Instructions: Simona, it was great seeing you today. I apologize for the delay in getting you back into the room. I hope you are comfortable during the procedure. Your prep was great and I could see everything fine. I did find to remove a single polyp today. Similar to your previous experience, this will be sent off for testing, and once we know the nature of that polyp, I can offer a better recommendation on the timing of your next colonoscopy. Those results usually take about a week or 2. Incidentally, he also have a little bit of diverticulosis. I cannot remember if we talked about this before. Diverticula are extremely common, and I find them in the majority of the patients that I performed colonoscopy on. Diverticula are little weak spots in the muscular part of the colon wall. The condition of having these is called diverticulosis. If they become symptomatic, it is typically experienced as sharp pain, usually on the left side of the abdomen, and a pretty ill feeling overall. We call those symptomatic flareups diverticulitis, and those episodes are often times treated with antibiotics. Hopefully, years will never bother you. I attached some information here on diverticulosis as well as colon rectal polyps. As I mentioned above, the office will let you know once we have the results of the polyp, if you have any questions in the meantime, please do not hesitate to call. 1. If tolerated, consume a soft, low fiber diet for 1-2 days. 2[address] Do not drive, drink alcohol, operate machinery, make critical decisions, or do activities that require coordination or balance for 24 hours. 3. Because air was put into your colon during the procedure, expelling air from your rectum (passing gas or farting) is normal. 4. You may not have a bowel movement for 1-3 days because of the colonoscopy prep. This is normal. 5. Go directly to the emergency room if you notice any of the following: Develop chills (warm to touch), or if you have a thermometer and your temperature is above 101 Difficulty breathing or difficultly swallowing Persistent vomiting Severe abdominal pain, other than gas cramps Severe chest pain Black, tarry stools Any bleeding ? exceeding one tablespoon 6. Call your physician if the site where your intravenous was started becomes red, swollen, painful, and warm to touch. 7. Your physician has reviewed your pre-procedure medications. Please continue to take those medications as previously ordered. You will be given specific information/education regarding any changes to your medications before leaving. Stand Alone Forms: Anesthesia Discharge InstShana Anderson (DSU) Activity:: Activity as Tolerated Diet:: As Tolerated Discharge Orders Discharge Orders: Discharge Order (Routine); Ordered 07/14/24 Ordered By: Jong Roberto DS: Diagnosis Discharge Diagnosis (1) Encounter for screening colonoscopy: Status: Acute Asessment and Plan: Follow-up on polypectomy results
--- NOTE | 2024-07-14 11:47 | COLE_ITS ---
Date of service: 07/15/24 Time of Service: 13:13 Colonoscopy Report Date of procedure: 07/15/24 Pre-op diagnosis general: screening colonoscopy Post-op diagnosis procedure note: other (Diverticulosis, colon polyp) Procedure: colonoscopy Surgeon: Jong Roberto Anesthesia Type: General:No Airway Estimated blood loss (mL): 5 Pathology: other (0.5 cm colon polyp at 40 cm from the anus) Complications: None Disposition: same day Indications: Simona is a 64 year old woman with a history of tubular adenoma who needs her next screening colonoscopy Prep: Miralax/Dulcolax Procedure Start Time: 12:50 Procedure End Time: 13:04 Retraction Time: 9 Findings: Sigmoid diverticulosis, 0.5 cm colon polyp at 40 cm Procedure Description: After the induction of monitored anesthetic care, and with the patient in left lateral decubitus position, I began by performing an external anorectal exam.? Perineum and skin were normal, as was the anal verge.? There was no evidence of external hemorrhoids.? Next, I performed a digital rectal exam.? I did not appreciate any abnormal findings.? Next, I advanced a colonoscope into the rectal vault.? I performed retroflexion.? This appeared normal.? Using insufflation, I then advanced the colonoscope beyond the rectal folds and into the sigmoid colon before advancing towards the cecum.? There was some sigmoid diverticulosis.? The scope was noted to be in the cecum by identification of the ileocecal valve and appendiceal orifice.? I then began withdrawing the colonoscope using repeated irrigation as necessary for full evaluation of the colonic mucosa. Around 40 cm from the anal verge I identified a 0.5 cm polyp. ?It appeared flat in character. ?I was able to remove this with a cold forcep polypectomy. ?I examined the site, and there was minimal bleeding. ?Once this was completed, I continued to withdraw the scope and examine the remainder of the colonic mucosa.?Once the scope was withdrawn to the level of the rectum, great care was taken to examine portions of the rectal folds.? Finally, the scope was withdrawn and the patient was brought to the same-day surgery recovery unit as the anesthetic wore off. ?The findings and instructions were shared with the patient prior to discharge. [place] Bowel Prep [place] Bowel Prep Right Colon: 3 Left Colon: 3 Transverse Colon: 3 Total Score: 9
[2024-07-15 10:42] VITALS: BP 169/92; PULSE 81; RESP 20; TEMP 36.1; O2SAT 98
[2024-07-15] MEDS: Lactated Ringers 1,000 ML 80 ML IV (11:05)
--- NOTE | 2024-07-15 11:40 | W.ANESPRE ---
General Info Date of Service Date Performed: 07/15/24 Height: 5 ft 2 in Weight: 73.936 kg Body Mass Index (BMI): 29.8 Surgical Procedure: Operation Date: 07/15/24 12:20 Proposed Procedure Side Surgeon berto Roberto MD Meds Allergies and Home Medications Allergies Allergy/AdvReac Type Severity Reaction Status Date / Time Sulfa (Sulfonamide Allergy Severe RASH Verified 07/15/24 10:54 Antibiotics) erythromycin base AdvReac Unknown GI UPSET Verified 07/15/24 10:54 Home Medication ?Medication ?Instructions ?Recorded esomeprazole magnesium 20 mg 20 mg PO DAILY 90 days #90 caps 07/31/20 capsule,delayed release atorvastatin 10 mg tablet 10 mg PO QPM #90 tabs 12/04/23 levothyroxine 100 mcg tablet See Rx Instructions .Route 12/04/23 (Synthroid) .COMPLEX #90 tabs fluticasone propionate 230 2 puff inhalation BID #12 grams 04/29/24 mcg-salmeterol 21 mcg/actuation HFA inhaler (Advair HFA) dupilumab 300 mg/2 mL subcutaneous 300 mg (2 mL) subcut Q2W #4 mL 07/02/24 syringe Current Visit Medications: Current Medications Generic Name Dose Route Start Last Admin Trade Name Freq PRN Reason Stop Dose Admin Ringer's Solution 1,000 mls @ 80 mls/hr 07/15/24 06:00 07/15/24 11:05 IV 07/15/24 23:59 80 mls/hr INFUSION JARED Administration IV Miscellaneous Supplies 1 each 07/15/24 06:00 Iv Access IV 07/15/24 23:59 DIRECTED JARED Levothyroxine Sodium 100 mcg 07/15/24 11:35 Levothyroxine 100 Mcg Tab PO 07/15/24 11:36 STAT STA Ondansetron HCl 4 mg 07/14/24 11:48 Ondansetron 4 Mg/2 Ml Vial IVP 08/13/24 11:47 Q4H PRN PRN Nausea / Vomiting Sodium Chloride 0 ml 07/15/24 06:00 Normal Saline Flush 10 Ml Syr IV 07/15/24 23:59 PRN PRN Sodium Chloride 0 ml 07/15/24 06:00 Normal Saline 10 Ml Vial IJ 07/15/24 23:59 DIRECTED PRN Sterile Water 0 ml 07/15/24 06:00 Water,Injection,Sterile 10 Ml Vial IJ 07/15/24 23:59 DIRECTED PRN PFSH Active Problems Active Problems: Problem Status Onset Code Encounter for screening colonoscopy Acute Z12.11 Elevated liver enzymes Acute R74.8 Foreign body of ear Acute T16.9XXA Neuritis of left foot Acute G57.92 Degenerative joint disease, foot, left Acute M19.072 Bunion, left foot Acute M21.612 Hypothyroidism Chronic 06/13/13 E03.9 Gastroesophageal reflux disease Chronic K21.9 Chronic sinusitis Chronic 09/14/03 J32.9 Bronchiectasis Chronic 12/11/13 J47.9 Asthma Chronic J45.909 Hyperlipidemia LDL goal <100 Acute E78.5 Foot pain, left Acute M79.672 Nasal polyps Acute J33.9 Dysfunction of both eustachian tubes Acute H69.83 Allergic rhinitis due to allergen Acute J30.9 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 Pes cavus of left foot Chronic Q66.72 Hallux valgus of left foot Chronic M20.12 Encounter for annual physical exam Acute Z00.00 Overweight (BMI 25.0-29.9) Chronic E66.3 Eczema Acute L30.9 Toe pain Acute M79.676 Medical History Medical History Deviated nasal septum Restless leg syndrome Seasonal allergies Lymph node symptom Dermatitis Surgical History Surgical History section (~1981) NASAL POLYP SURGERY 2007 2011 Colonoscopy - [facility] (08/21/17) Tobacco Smoking/Tobacco Use Status: Never Passive smoking exposure: No Second hand exposure: No Alcohol Alcohol Intake: current Alcohol intake frequency: a few times a month Alcohol type: wine Substance Use Substance use: Never Substance use type: does not use Counseling provided: none Vital Signs and Lab Results Vital Signs Most Recent Vital Signs in EMR: Most Recent Vital Signs Temp Pulse Resp BP Pulse Ox 36.1 C L 81 20 169/92 H 98 07/15/24 10:42 07/15/24 10:42 07/15/24 10:42 07/15/24 10:42 07/15/24 10:42 Lab Results Blood Type / Crossmatch: No Data to Display Complete Blood Count: No Data to Display Complete Metabolic Panel: No Data to Display Liver Function Panel: No Data to Display Coagulation Panel: No Data to Display Cardiac Panel: No Data to Display Arterial Blood Gas: No Data to Display Venous Blood Gas: No Data to Display Pancreas Panel: No Data to Display Thyroid Panel: No Data to Display Infectious Disease: No Data to Display Blood Cultures: No Data to Display Toxicology Panel: No Data to Display Anesthesia Assessment and Plan Anesthesia History Personal History: No History of Anesthesia Complications Family History: No Family History of Anesthesia Complications Exercise Tolerance Exercise Tolerance: Metabolic Equivalents>4 Pertinent Negatives Pertinent Negatives: No Major Cardiovascular Symptoms or Complaints, No Major Pulmonary Symptoms or Complaints and No History of CVA/TIA Cardiac & Pulmonary Exam Cardiac Exam: Normal S1/S2 Heart Sounds Pulmonary Exam: Clear Bilateral Breath Sounds Implantable Cardiac Device Does patient have a Pacemaker or an ICD?: No Airway Exam Known Difficult Airway: No Mallampati Class: 2 Mouth Opening: Normal (> 3cm) Thyromental Distance: Greater than 3 cm Neck Range of Motion: Full ROM Neck Circumference: Normal Teeth Condition: Normal Dentition ASA Classification ASA Score: ASA 2 Emergency Case?: No NPO Status NPO Status: NPO Clears >2 hours, Solids >8 hours Anesthesia Plan Resuscitation Status: Full Code Anesthesia Technique: General Anesthesia Airway Planned: Natural Airway Monitors Used: Standard Monitors Preoperative Comments:: Did not take AM levothyroxine. Ordered and to be administered by DSU RN.
[2024-07-15 11:41] VITALS: BMI 29.8
[2024-07-15] MEDS: Levothyroxine 100 MCG TAB PO (11:55)
--- NOTE | 2024-07-15 13:03 | BOWEL_PTH ---
PATIENT: Simona Pineda LOC: [facility] U#:[id number] AGE/SX: 64/F ROOM: RE07/15/[address]: Jong Roberto MD : 1960 BED: DIS: 07/15/2024 SPEC #: [id number] RECD: 07/15/24 17:04 STATUS: EDILBERTO RE #: [id number] TAVIA: 07/15/24 13:[address]: Jong Roberto DEPT: Surgical Specimen RECD BY: Deborah Maloney ENTERED: 07/15/24 17:04 SP TYPE: Bowel OTHR DR: John Prescott DNP Tissues: 1 - BIOPSY BOWEL Procedures: GROSS AND MICRO LEVEL 4 Comments: [id number]
[2024-07-15 13:11] VITALS: BP 95/54; PULSE 83; RESP 18; TEMP 36.5; O2SAT 96
[2024-07-15 13:40] VITALS: BP 148/89; PULSE 71; RESP 18; TEMP 36.6; O2SAT 97
--- NOTE | 2024-07-15 14:00 | W.ANESPOSTOP ---
Postoperative Evaluation Date, Time and Location Date Performed: 07/15/24 Time Performed: 14:00 Patient Location: Day Surgery Unit Vital Signs Most Recent Imported Vital Signs: Most Recent Vital Signs Temp Pulse Resp BP Pulse Ox 36.6 C 71 18 148/89 H 97 07/15/24 13:40 07/15/24 13:40 07/15/24 13:40 07/15/24 13:40 07/15/24 13:40 Pain Score Most Recent Pain Score: Most Recent Pain Score Pain Level 0 07/15/24 13:40 Assessment Mental Status: Awake (Alert & Oriented to Patient Baseline) Airway and Respiratory Function: Patent airway with normal (patient baseline) respiratory exam Cardiovascular Function: Hemodynamically Stable Hydration Status: Adequately Hydrated Nausea & Vomiting: No Nausea or Vomiting Pain: Pt. Denies Any Pain Peripheral Nerve Block: Patient did not receive a nerve block
== END 2024-07-15 14:00 | disposition home or self-care (01) ==
LOC: SUR 10:19
PROVIDERS: PCP Nurse Practitioner Family; Visit Provider Surgery
PROC: 0DJD8ZZ Inspection of Lower Intestinal Tract, Via Natural or Artificial Opening Endoscopic (ICD-10-PCS; CPT 45378; principal; 2024-07-15 12:15)
DX: Z12.11 Encounter for screening for malignant neoplasm of colon (principal); D12.5 Benign neoplasm of sigmoid colon
CPT/HCPCS: 45380; 88305; J2704

== ENCOUNTER 2025-03-07 20:21 | Outpatient (REF) | payer MEDICARE, SELFPAY ==
[2025-03-07 17:15] LABS: ALT 55 U/L (14-59); AST 32 U/L (15-37); Alkaline Phosphatase 84 U/L (46-116); Anion Gap 8.2 mmol/L (3-11); BUN 16 mg/dL (7-18); Bilirubin, Total 0.5 mg/dL (0.2-1.0); CO2 25.8 mmol/L (21.0-32.0); CREATININE 0.6 mg/dL (0.55-1.02); Calcium 9.4 mg/dL (8.5-10.1); Calculated LDL 85 mg/dL (<100); Chloride 107 mmol/L (98-107); Cholesterol 167 mg/dL (<200); Estimated GFR 99.55 (mL/min/1.73m2); Glucose 96 mg/dL (74-106); HDL Cholesterol 69 mg/dL (>or=50); Potassium 4.4 mmol/L (3.5-5.1); Sodium 141 mmol/L (136-145); TSH (W/Ref FT4) 0.21 uIU/mL (0.36-3.74); Total Protein 7.5 g/dL (6.4-8.2); Triglyceride 67 mg/dL (<150)
[2025-03-07 17:47] LABS: FREE T4 1.25 ng/dL (0.76-1.46)
[2025-03-10 10:12] LABS: Hepatitis C Ab w Rflx HCV PCR Negative (Negative)
[2025-03-10 10:22] LABS: HBs Antibody, Quant <3.1 mIU/mL (See Note); Hep B Surface Ab Negative (See Note); Hepatitis B Core Antibody Negative (Negative); Hepatitis B Surface Antigen Negative (Negative)
[2025-03-10 10:31] LABS: HIV-1/2 Ag & Ab Screen Negative (Negative)
== END 2025-03-07 20:22 | disposition home or self-care (01) ==
LOC: LBN 20:21
PROVIDERS: PCP Nurse Practitioner Family; Visit Provider Nurse Practitioner Family
DX: E03.9 Hypothyroidism, unspecified (principal); E78.5 Hyperlipidemia, unspecified; Z11.4 Encounter for screening for human immunodeficiency virus [HIV]; Z11.59 Encounter for screening for other viral diseases
CPT/HCPCS: 80053; 80061; 86704; 86706; 86803; 87340; 87389; 84439; 84443

== ENCOUNTER 2025-03-25 01:30 | Outpatient (CLI) | payer MEDICARE, SELFPAY ==
--- NOTE | 2025-03-25 06:00 | DI.DEXA_ITS ---
Exam(s) XR DEXA BONE DENSITY W/WO BRANDON EXAM: XR DEXA BONE DENSITY W/WO BRANDON CLINICAL HISTORY: screening for osteoporosis in postmenopausal status,z78.0 TECHNIQUE: Routine DEXA evaluation of the lumbar spine, hip, or forearm. COMPARISON: No exams were available for comparison FINDINGS: Performed on a Hologic unit. Lateral image: No compression fracture evident. Lumbar Spine total T-score: -2.2. This is osteopenia level. Hip total T-score:-1.6. Osteopenia level Independent reading at the level of the femoral neck yields T-score of -2.3 which is osteopenia leve l. Forearm total T-score: -3.1. This is osteoporosis level. IMPRESSION: Bone mineral density measures in the osteopenia range for the lumbar spine and hip. Fracture risk is moderate. Bone mineral density is in the osteoporosis range at the forearm-wrist level. Fracture r isk at this level is high. Note: Any spine fracture indicates 5x risk for subsequent spine fracture and 2x risk for subsequent h ip fracture. World Health Organization criteria for BMD interpretation classify patients: Normal...... T- Score at or above -1.0 Osteopenic... T- Score between -1.0 and -2.5 Osteoporosis... T-Score at or below -2.5
== END 2025-03-25 01:50 ==
LOC: DI 01:31
PROVIDERS: PCP Nurse Practitioner Family; Visit Provider Nurse Practitioner Family
DX: Z78.0 Asymptomatic menopausal state (principal); Z13.820 Encounter for screening for osteoporosis; M81.0 Age-related osteoporosis without current pathological fracture
CPT/HCPCS: 77080

== ENCOUNTER 2025-04-22 01:51 | Outpatient (CLI) | payer MEDICARE, SELFPAY ==
--- NOTE | 2025-04-22 06:30 | DI.MAMMO_ITS ---
Exam(s) MAMMO SCREENING EXAM: MAMMO SCREENING CLINICAL HISTORY: screening,z12.39. TECHNIQUE: Bilateral full field digital CC and MLO mammographic images were obtained with 3D tomosynthesis and utilizing computer aided detection (CAD). COMPARISON: Prior mammograms were reviewed. FINDINGS: There has been no significant change in the appearance and distribution of the fibroglandular tissue. Asymmetric density in the medial aspect of the left breast is unchanged from 2016. In the right breast on the MLO view there is a well-defined noncalcified nodular density located 9 cm in from the nipple measuring 6 by 4 mm. Possibly a benign intramammary lymph node but more evident than on prior mammograms. There are no malignant-appearing microcalcification groups is region or elsewhere in either breast. There is no significant architectural distortion nor skin thickening-retraction. IMPRESSION: 1. No radiographic evidence of malignancy in the left breast. 2. 6 x 4 mm noncalcified nodular density in the right breast as described above. Spot compression MLO view and ultrasound recommended. BI-RADS Category 0 - Incomplete: Need additional imaging evaluation Breast Density - Category B - There are scattered areas of fibroglandular density. Breast density Category C or D implies that the patient has dense breast tissue. Dense breast tissue can make it harder to find cancer on a mammogram. Dense breast tissue is also associated with an increased risk of breast cancer. This information about the result of the mammogram report was provided to the patient to raise their awareness. Use this report when you speak with the patient about their risks for breast cancer, which includes their family history. At that time, you may recommend additional screening tests (Ultrasound or MRI) as these tests may add significant information. A negative radiographic report should not delay biopsy if a dominant or clinically suspicious mass is present. Up to ten percent of cancers are not identified on mammography. A negative report may reinforce clinical impression. Adenosis and dense breasts may obscure an underlying neoplasm. False positive reports average 6 to 10%. Patient will receive a letter notifying them of these results.
== END 2025-04-22 02:11 ==
LOC: DI 01:52
PROVIDERS: PCP Nurse Practitioner Family; Visit Provider Nurse Practitioner Family
DX: Z12.31 Encounter for screening mammogram for malignant neoplasm of breast (principal); R92.323 Mammographic fibroglandular density, bilateral breasts
CPT/HCPCS: 77063; 77067

== ENCOUNTER 2025-04-24 01:17 | Outpatient (CLI) | payer MEDICARE, SELFPAY ==
--- NOTE | 2025-04-24 | DI.US_ITS ---
Exam(s) MG MAMMO SCREEN CALL BACK UNI US BREAST RT COMPLETE EXAM: MG MAMMO SCREEN CALL BACK UNI-RIGHT AND COMPLETE RIGHT BREAST ULTRASOUND CLINICAL HISTORY: CALL BACK MAMMO, R92.8,RT NODULAR DENSITY. TECHNIQUE: Unilateral RIGHT BREAST spot mammographic images obtained with 3D tomosynthesisand utilizing computer aided detection (CAD). . Complete RIGHT breast Ultrasound was also performed, including all 4 quadrants, the retroareolar region, and the ipsilateral axilla. COMPARISON: Prior mammograms were reviewed. This additional imaging was performed due to findings described on the recent screening mammogram of 04/22/2025. FINDINGS: DIAGNOSTIC MAMMOGRAM: Additional mammographic views performed todaydoes not dissipate this finding at the 12 o'clock position we therefore proceeded with ultrasound COMPLETE RIGHT BREAST ULTRASOUND: Ultrasound performed today reveals a solitary finding which is at 12 o'clock position and corresponds to the finding on the mammogram. This is a 2 mm benign microcyst. There are no other significant focal findings in all 4 quadrants of the right breast. Scanning of the ipsilateral axilla reveals no significant adenopathy. IMPRESSION: 1. There is a 2 millimeter benign microcyst the 12 o'clock position and ultrasound which corresponds to the new finding on the mammogram. 2. There are no solid lesions. Appropriate follow-up is to keep this patient on her yearly mammogram schedule, with earlier imaging if a self detected breast change is noted.. The patient was informed of these findings and recommendations by myself prior to leaving the department today. BI-RADS Category 2 - Benign Findings Breast Density - Category B - There are scattered areas of fibroglandular density. Breast density Category C or D implies that the patient has dense breast tissue. Dense breast tissue can make it harder to find cancer on a mammogram. Dense breast tissue is also associated with an increased risk of breast cancer. This information about the result of the mammogram report was provided to the patient to raise their awareness. Use this report when you speak with the patient about their risks for breast cancer, which includes their family history. At that time, you may recommend additional screening tests (Ultrasound or MRI) as these tests may add significant information. A negative radiographic report should not delay biopsy if a dominant or clinically suspicious mass is present. Up to ten percent of cancers are not identified on mammography. A negative report may reinforce clinical impression. Adenosis and dense breasts may obscure an underlying neoplasm. False positive reports average 6 to 10%. Patient will receive a letter notifying them of these results.
== END 2025-04-24 01:37 ==
LOC: DI 01:17
PROVIDERS: PCP Nurse Practitioner Family; Visit Provider Nurse Practitioner Family
DX: R92.8 Other abnormal and inconclusive findings on diagnostic imaging of breast (principal); N63.15 Unspecified lump in the right breast, overlapping quadrants
CPT/HCPCS: 76642; 77063; 77067

== ENCOUNTER 2025-06-06 00:29 | Outpatient (CLI) | payer MEDICARE, SELFPAY ==
[2025-06-06 13:13] LABS: TSH (W/Ref FT4) 1.84 uIU/mL (0.36-3.74)
== END 2025-06-06 00:30 | disposition home or self-care (01) ==
LOC: LOS 00:29
PROVIDERS: PCP Nurse Practitioner Family; Visit Provider Nurse Practitioner Family
DX: E03.9 Hypothyroidism, unspecified (principal)
CPT/HCPCS: 84443